=== PATIENT | male | born 1990 ===

== ENCOUNTER 2023-04-15 07:49 | Inpatient (IN) | payer OTHER ==
[2023-04-15] MEDS ORDERED: fentaNYL 50 mcg/mL 1 mL Vial ONE ×2 (07:51→08:52)
[2023-04-15] MEDS ORDERED: Boostrix 0.5 ML (Tdap) VIAL (>/=7 yrs of age) ONE (07:52)
[2023-04-15] MEDS ORDERED: CEFAZOLIN 2 GM VIAL ONE (07:52)
[2023-04-15] MEDS ORDERED: Ondansetron PF 4 MG/2 ML Vial ONE (07:57)
[2023-04-15] MEDS ORDERED: Ketamine In 0.9 % NaCl 50 MG/5 ML SYRINGE ONE (08:39)
[2023-04-15] MEDS ORDERED: Rocuronium Bromide 10 MG/ML (10ML VIAL) ONE ×3 (08:40→12:30)
[2023-04-15] MEDS ORDERED: Midazolam HCl 2 mg/2 ml Vial ONE ×2 (08:51→12:20)
[2023-04-15] MEDS ORDERED: Lidocaine 1% PF 5 ML VIAL ONE (08:53)
[2023-04-15] MEDS ORDERED: Fentanyl CADD 100 ML IV SCH (09:00)
[2023-04-15 09:07] LABS: Bacteria/HPF None Seen HPF (None Seen); Bilirubin Negative (Negative); Blood, Urine 3+ (Negative); CAUTI Indications for Culture Alt mental st,lethar; Clarity Clear (Clear); Glucose, Urine (Dipstick) Normal (Negative); Ketone, Urine Negative (Negative); Leukocyte Negative Leu/uL (Negative); Nitrite Negative (Negative); Protein, Urine (Dipstick) 50 mg/dL (Neg-Trace); RBC/HPF 21-50 HPF (0-3); Specific Gravity, Urine 1.031 (1.002-1.036); Squamous Epithelial 0-3 HPF (0-3); Urobilinogen Normal mg/dL (Less than 2); WBC/HPF 0-3 HPF (0-3)
[2023-04-15 09:09] LABS: Urine Culture Reflex No No
[2023-04-15 09:21] LABS: #Basophils 0.1 thou/uL (0.0-0.2); #Eosinphils 0.1 thou/uL (0.0-0.7); #Monocytes 0.9 thou/uL (0.11-0.59); #Neutrophils 20.3 thou/uL (1.40-6.50); %Basophils 0.3 % (0.0-1.0); %Eosinophils 0.4 % (0.0-10.0); %Lymphocytes 12.8 % (21.0-51.0); %Monocytes 3.6 % (0.0-10.0); %Neutrophils 82.1 % (42.0-75.0); Hematocrit 45.6 % (42.0-52.0); Hemoglobin 15.9 g/dL (14.0-18.0); Mean Corpuscular HGB CONC 34.9 g/dL (32.0-36.0); Mean Corpuscular Hemoglobin 31.1 pg (27.0-31.0); Mean Corpuscular Volume 89.1 fl (78.0-98.0); Mean Platelet Volume 10.4 fL (7.4-10.4); Platelet Count 308 10x3/uL (130-400); RBC Distribution Width 12.8 % (11.5-14.5); Red Blood Cell (RBC) Count 5.12 mill/uL (4.70-6.10); White Blood Cell (WBC) Count 24.8 10x3/uL (4.8-10.8)
[2023-04-15 09:33] LABS: ALT (SGPT) 113 U/L (8-55); AST (SGOT) 159 U/L (5-34); Albumin 3.9 g/dL (3.5-5.0); Alkaline Phosphatase 90 U/L (40-110); Anion Gap 19 mmol/L (10-20); BUN (Urea Nitrogen) 14 mg/dL (8.9-20.6); Bilirubin, Total 0.6 mg/dL (0.2-1.2); Calc. Creatinine Clearance 0 mL/min (70-130); Calcium 8.9 mg/dL (7.8-10.44); Carbon Dioxide 18 mmol/L (22-29); Chloride 104 mmol/L (98-107); Estimated GFR 103; Globulin 2.8 g/dL (2.4-3.5); Glucose 167 mg/dL (70-105); Potassium 3.5 mmol/L (3.5-5.1); Protein, Total 6.7 g/dL (6.0-8.3); Sodium 137 mmol/L (136-145)
[2023-04-15 09:36] LABS: Analyzer IN Cardio ER; Base Excess (BEa) -4.5 mEq/L (-2.0 to +3.0); CO2 Tension 45.5 mmHg (35.0-45.0); Calcium, Ionized (arterial) 1.13 mmol/L (1.12-1.30); Carboxyhemoglobin (COHb) 0.7 gm% (0.0-3.0); Hematocrit-ABG 43 % (42.0-52.0); Hemoglobin (Hb) 14.7 g/dL (14.0-18.0); O2 Tension (PaO2), arterial 79.3 mmHg (80.0-100.0); Potassium - ABG Lab 3.61 mmol/L (3.70-5.30); pH, Arterial 7.302 (7.35-7.45)
[2023-04-15 09:40] LABS: Puncture Site Left Radial
[2023-04-15] MEDS ORDERED: Propofol 1,000 MG/100 ML VIAL IV ONE (09:49)
[2023-04-15] MEDS ORDERED: CEFAZOLIN 2 GM in Sodium Chloride 0.9% 100 ML IVPB SCH ×2 (10:00→15:30)
[2023-04-15] MEDS ORDERED: fentaNYL PF 100 MCG/2 ML SYRINGE ONE (12:20)
[2023-04-15] MEDS ORDERED: PROPOFOL 20 ML ONE (12:20)
[2023-04-15 12:36] LABS: Lactic Acid 2.6 mmol/L (0.5-2.2)
[2023-04-15] MEDS ORDERED: Electrolyte Replacement Protocol 1 EACH FS ONE (13:08)
[2023-04-15] MEDS ORDERED: Iopamidol-370 76% 500 ML MDV (1 ML CHARGE) ONE (13:11)
[2023-04-15] MEDS ORDERED: Ventilator Sedation Protocol 1 EACH FS SCH (13:15)
[2023-04-15] MEDS ORDERED: Electrolyte Replacement Protocol FS PRN (13:30)
[2023-04-15] MEDS ORDERED: Morphine 2 MG/ML VIAL SLOW IVP PRN (13:30)
[2023-04-15] MEDS ORDERED: Fentanyl BOLUS 250 ML IVPB PRN (13:30)
[2023-04-15] MEDS ORDERED: Lorazepam 2 MG/ML VIAL SLOW IVP PRN (13:30)
[2023-04-15] MEDS ORDERED: Propofol BOLUS 1,000 MG/100 ML VIAL IV PRN (13:30)
[2023-04-15] MEDS ORDERED: CEFAZOLIN 1 GM VIAL ONE (13:50)
[2023-04-15] MEDS: Propofol 1,000 MG/100 ML VIAL IV PRN ×3 (15:38→23:20)
[2023-04-15] MEDS: Potassium Chloride 20 MEQ in Premix 1 BAG IVPB SCH ×2 (15:38→18:10)
[2023-04-15] MEDS: Fentanyl CADD 100 ML IV SCH (20:54)
[2023-04-15] MEDS: Sodium Chloride 0.9% 1,000 ML IV SCH (23:07)
[2023-04-16] MEDS: Sodium Chloride 0.9% 1,000 ML IV SCH ×2 (00:58→11:23)
[2023-04-16] MEDS ORDERED: Sodium Chloride 0.9% 500 ML IV SCH (01:00)
[2023-04-16 04:08] LABS: #Monocytes 1.1 thou/uL (0.11-0.59); #Neutrophils 6.3 thou/uL (1.40-6.50); %Basophils 0.1 % (0.0-1.0); %Eosinophils 0.1 % (0.0-10.0); %Monocytes 12.7 % (0.0-10.0); Mean Corpuscular HGB CONC 33.9 g/dL (32.0-36.0); Mean Corpuscular Hemoglobin 31.1 pg (27.0-31.0); Mean Corpuscular Volume 91.7 fl (78.0-98.0); RBC Distribution Width 13.2 % (11.5-14.5); Red Blood Cell (RBC) Count 3.38 mill/uL (4.70-6.10)
[2023-04-16 04:28] LABS: Lactic Acid 1.1 mmol/L (0.5-2.2)
[2023-04-16 04:40] LABS: Anion Gap 11 mmol/L (10-20); BUN (Urea Nitrogen) 15 mg/dL (8.9-20.6); Calc. Creatinine Clearance 144 mL/min (70-130); Calcium 7.5 mg/dL (7.8-10.44); Carbon Dioxide 23 mmol/L (22-29); Chloride 107 mmol/L (98-107); Estimated GFR 96; Glucose 129 mg/dL (70-105); Potassium 4.6 mmol/L (3.5-5.1); Sodium 136 mmol/L (136-145)
[2023-04-16 04:43] LABS: Hemoglobin 10.5 g/dL (14.0-18.0); Platelet Count 166 10x3/uL (130-400)
[2023-04-16] MEDS: Propofol 1,000 MG/100 ML VIAL IV PRN (05:31)
[2023-04-16] MEDS: Fentanyl CADD 100 ML IV SCH (06:28)
[2023-04-16] MEDS: Pantoprazole 40 MG VIAL IVP SCH (08:41)
[2023-04-16] MEDS ORDERED: traMADol HCl 50 MG TAB PO PRN (09:36)
[2023-04-16] MEDS: Morphine 2 MG/ML VIAL SLOW IVP PRN ×2 (11:18→15:20)
[2023-04-16] MEDS: Acetaminophen 500 MG TAB PO PRN (13:54)
[2023-04-16] MEDS ORDERED: Methocarbamol 1 GM in Sodium Chloride 0.9% 100 ML IVPB PRN (14:00)
[2023-04-16] MEDS ORDERED: Melatonin 3 MG TAB PO PRN (18:48)
[2023-04-16] MEDS ORDERED: fentaNYL 50 mcg/mL 1 mL Vial SLOW IVP SCH (19:45)
[2023-04-16] MEDS ORDERED: diphenhydrAMINE 50 MG/ML VIAL IVP PRN ×2 (20:52→21:39)
[2023-04-16] MEDS ORDERED: Naloxone HCl 0.4 mg/ml Vial IV PRN ×2 (20:52→21:39)
[2023-04-16] MEDS ORDERED: Ondansetron PF 4 MG/2 ML Vial IVP PRN ×2 (20:52→21:39)
[2023-04-16] MEDS ORDERED: diphenhydrAMINE 25 MG CAP PO PRN ×2 (20:52→21:39)
[2023-04-16] MEDS ORDERED: Promethazine HCl 25 MG/ML VIAL IM PRN ×2 (20:52→21:39)
[2023-04-16] MEDS ORDERED: HYDROmorphone/PF 10 MG in Sodium Chloride 0.9% 99 ML IV PRN (20:52)
[2023-04-16] MEDS ORDERED: diphenhydrAMINE 50 MG/ML VIAL IM PRN ×2 (20:52→21:39)
[2023-04-16] MEDS ORDERED: Communication Order-Pharmacy FS SCH ×2 (21:00→21:45)
[2023-04-16] MEDS: Fentanyl CADD 100 ML IV PRN (21:54)
[2023-04-17 05:24] VITALS: BMI 33.7
[2023-04-17 05:29] LABS: #Monocytes 0.8 thou/uL (0.11-0.59); #Neutrophils 6.3 thou/uL (1.40-6.50); %Basophils 0.1 % (0.0-1.0); %Eosinophils 0.5 % (0.0-10.0); %Lymphocytes 18.3 % (21.0-51.0); %Monocytes 9.2 % (0.0-10.0); %Neutrophils 71.6 % (42.0-75.0); Mean Corpuscular HGB CONC 34.6 g/dL (32.0-36.0); Mean Corpuscular Hemoglobin 31.6 pg (27.0-31.0); Mean Corpuscular Volume 91.5 fl (78.0-98.0); Mean Platelet Volume 10.2 fL (7.4-10.4); Platelet Count 125 10x3/uL (130-400); RBC Distribution Width 12.9 % (11.5-14.5); Red Blood Cell (RBC) Count 2.34 mill/uL (4.70-6.10); White Blood Cell (WBC) Count 8.8 10x3/uL (4.8-10.8)
[2023-04-17 05:34] LABS: Hematocrit 21.4 % (42.0-52.0); Hemoglobin 7.4 g/dL (14.0-18.0)
[2023-04-17 05:55] LABS: Anion Gap 10 mmol/L (10-20); BUN (Urea Nitrogen) 7 mg/dL (8.9-20.6); Calc. Creatinine Clearance 204 mL/min (70-130); Calcium 7.9 mg/dL (7.8-10.44); Carbon Dioxide 26 mmol/L (22-29); Chloride 103 mmol/L (98-107); Estimated GFR 121; Glucose 104 mg/dL (70-105); Potassium 3.6 mmol/L (3.5-5.1); Sodium 135 mmol/L (136-145)
[2023-04-17] MEDS ORDERED: CEFAZOLIN 2 GM in Sodium Chloride 0.9% 100 ML IVPB SCH (07:30)
[2023-04-17] MEDS: Sodium Chloride 0.9% 1,000 ML IV SCH ×3 (07:45→21:18)
[2023-04-17] MEDS: Acetaminophen 500 MG TAB PO PRN (08:02)
[2023-04-17] MEDS: Pantoprazole 40 MG VIAL IVP SCH (08:02)
[2023-04-17] MEDS: Fentanyl CADD 100 ML IV PRN (14:08)
[2023-04-17 16:28] LABS: Hematocrit 21.6 % (42.0-52.0); Hemoglobin 7.5 g/dL (14.0-18.0); Mean Corpuscular HGB CONC 34.7 g/dL (32.0-36.0); Mean Corpuscular Hemoglobin 31.4 pg (27.0-31.0); Mean Corpuscular Volume 90.4 fl (78.0-98.0); Platelet Count 141 10x3/uL (130-400); RBC Distribution Width 12.8 % (11.5-14.5); Red Blood Cell (RBC) Count 2.39 mill/uL (4.70-6.10); White Blood Cell (WBC) Count 7.9 10x3/uL (4.8-10.8)
[2023-04-18] MEDS: Fentanyl CADD 100 ML IV PRN (08:03)
[2023-04-18] MEDS: Pantoprazole 40 MG VIAL IVP SCH (08:05)
[2023-04-18 08:09] LABS: #Eosinphils 0.1 thou/uL (0.0-0.7); #Monocytes 0.5 thou/uL (0.11-0.59); %Basophils 0.3 % (0.0-1.0); %Eosinophils 1.7 % (0.0-10.0); %Lymphocytes 19.1 % (21.0-51.0); %Monocytes 7.3 % (0.0-10.0); %Neutrophils 71.2 % (42.0-75.0); Hematocrit 19.9 % (42.0-52.0); Hemoglobin 6.9 g/dL (14.0-18.0); Mean Corpuscular HGB CONC 34.7 g/dL (32.0-36.0); Mean Corpuscular Hemoglobin 31.4 pg (27.0-31.0); Mean Corpuscular Volume 90.5 fl (78.0-98.0); Mean Platelet Volume 9.8 fL (7.4-10.4); Platelet Count 156 10x3/uL (130-400); RBC Distribution Width 12.7 % (11.5-14.5)
[2023-04-18 08:37] LABS: Anion Gap 10 mmol/L (10-20); BUN (Urea Nitrogen) 5 mg/dL (8.9-20.6); Calc. Creatinine Clearance 221 mL/min (70-130); Calcium 7.9 mg/dL (7.8-10.44); Carbon Dioxide 27 mmol/L (22-29); Chloride 105 mmol/L (98-107); Estimated GFR 125; Glucose 94 mg/dL (70-105); Potassium 3.5 mmol/L (3.5-5.1); Sodium 138 mmol/L (136-145)
[2023-04-18] MEDS ORDERED: Potassium Chloride 20 MEQ TAB PO SCH (09:00)
[2023-04-18] MEDS ORDERED: Rocuronium Bromide 10 MG/ML (10ML VIAL) ONE ×2 (12:16→13:00)
[2023-04-18] MEDS ORDERED: PROPOFOL 20 ML ONE ×2 (12:16→14:38)
[2023-04-18] MEDS ORDERED: fentaNYL PF 100 MCG/2 ML SYRINGE ONE (12:16)
[2023-04-18] MEDS ORDERED: HYDROmorphone 2 MG/ML VIAL ONE (12:16)
[2023-04-18] MEDS ORDERED: Lidocaine 2% PF 5 ML VIAL ONE ×2 (12:16→12:17)
[2023-04-18] MEDS ORDERED: Dexamethasone 20 MG/5 ML VIAL ONE ×2 (12:17→13:00)
[2023-04-18] MEDS ORDERED: CEFAZOLIN 2 GM VIAL ONE (12:34)
[2023-04-18] MEDS ORDERED: Sodium Chloride 0.9% 100 ML ONE (12:34)
[2023-04-18] MEDS ORDERED: PROPOFOL 200 MG/20 ML VIAL ONE (13:00)
[2023-04-18] MEDS ORDERED: Ketorolac Tromethamine 30 MG/ML VIAL ONE ×2 (13:00→13:51)
[2023-04-18] MEDS ORDERED: Ondansetron PF 4 MG/2 ML Vial ONE (13:00)
[2023-04-18] MEDS ORDERED: SUGAMMADEX SODIUM 200 MG/2 ML VIAL ONE (13:51)
[2023-04-18] MEDS: Sodium Chloride 0.9% 1,000 ML IV SCH (15:12)
[2023-04-18] MEDS: Nicotine 14 MG PATCH TOP SCH (20:12)
[2023-04-18] MEDS: CEFAZOLIN 2 GM in Sodium Chloride 0.9% 100 ML IVPB SCH (22:07)
[2023-04-19] MEDS: Fentanyl CADD 100 ML IV PRN (04:41)
[2023-04-19] MEDS: Sodium Chloride 0.9% 1,000 ML IV SCH (04:47)
[2023-04-19] MEDS: CEFAZOLIN 2 GM in Sodium Chloride 0.9% 100 ML IVPB SCH (05:25)
[2023-04-19 05:54] LABS: #Monocytes 0.8 thou/uL (0.11-0.59); #Neutrophils 9.5 thou/uL (1.40-6.50); %Basophils 0.1 % (0.0-1.0); %Lymphocytes 8.8 % (21.0-51.0); %Monocytes 7.3 % (0.0-10.0); Hematocrit 22.4 % (42.0-52.0); Hemoglobin 7.7 g/dL (14.0-18.0); Mean Corpuscular HGB CONC 34.4 g/dL (32.0-36.0); Mean Corpuscular Hemoglobin 31.4 pg (27.0-31.0); Mean Corpuscular Volume 91.4 fl (78.0-98.0); Mean Platelet Volume 9.8 fL (7.4-10.4); Platelet Count 206 10x3/uL (130-400); Red Blood Cell (RBC) Count 2.45 mill/uL (4.70-6.10); White Blood Cell (WBC) Count 11.4 10x3/uL (4.8-10.8)
[2023-04-19 06:26] LABS: Anion Gap 11 mmol/L (10-20); BUN (Urea Nitrogen) 7 mg/dL (8.9-20.6); Calc. Creatinine Clearance 236 mL/min (70-130); Calcium 8.2 mg/dL (7.8-10.44); Carbon Dioxide 25 mmol/L (22-29); Chloride 106 mmol/L (98-107); Estimated GFR 125; Glucose 112 mg/dL (70-105); Potassium 3.7 mmol/L (3.5-5.1); Sodium 138 mmol/L (136-145)
[2023-04-19] MEDS: Acetaminophen 500 MG TAB PO PRN (08:43)
[2023-04-19] MEDS: Pantoprazole 40 MG VIAL IVP SCH (08:44)
[2023-04-19] MEDS ORDERED: traMADol HCl 50 MG TAB PO PRN (10:36)
[2023-04-19] MEDS ORDERED: Ibuprofen 600 MG TAB PO SCH (10:45)
[2023-04-19] MEDS ORDERED: Acetaminophen 500 MG TAB PO SCH (10:45)
[2023-04-19] MEDS ORDERED: HYDROcodone/Acetaminophen 10/325 mg Tablet PO PRN ×2 (12:03→12:04)
[2023-04-19] MEDS ORDERED: fentaNYL 50 mcg/mL 1 mL Vial SLOW IVP PRN (12:04)
[2023-04-19] MEDS: Acetaminophen 325 MG TAB PO SCH ×3 (12:29→23:03)
[2023-04-19] MEDS: Ibuprofen 200 MG TAB PO SCH ×3 (12:29→23:01)
[2023-04-19] MEDS: traMADol HCl 50 MG TAB PO SCH ×3 (12:30→23:02)
[2023-04-19] MEDS: Gabapentin 300 MG CAP PO SCH ×3 (15:19→21:29)
[2023-04-19] MEDS: Ferrous Sulfate 325 MG TAB PO SCH (18:00)
[2023-04-19] MEDS: Senokot S 8.6-50 MG TAB PO SCH (21:29)
[2023-04-19] MEDS: Nicotine 14 MG PATCH TOP SCH (21:31)
[2023-04-19] MEDS: Bisacodyl 10 MG SUPP PR SCH (21:31)
[2023-04-19] MEDS: Polyethylene Glycol 3350 17 GM Packet PO SCH (21:32)
[2023-04-20 04:26] LABS: #Eosinphils 0.2 thou/uL (0.0-0.7); #Monocytes 0.6 thou/uL (0.11-0.59); #Neutrophils 4.2 thou/uL (1.40-6.50); %Basophils 0.4 % (0.0-1.0); %Eosinophils 2.6 % (0.0-10.0); %Lymphocytes 29.7 % (21.0-51.0); %Monocytes 8.2 % (0.0-10.0); %Neutrophils 57.2 % (42.0-75.0); Hematocrit 21.9 % (42.0-52.0); Hemoglobin 7.4 g/dL (14.0-18.0); Mean Corpuscular HGB CONC 33.8 g/dL (32.0-36.0); Mean Corpuscular Volume 91.6 fl (78.0-98.0); Mean Platelet Volume 9.6 fL (7.4-10.4); Platelet Count 277 10x3/uL (130-400); RBC Distribution Width 13.3 % (11.5-14.5); Red Blood Cell (RBC) Count 2.39 mill/uL (4.70-6.10); White Blood Cell (WBC) Count 7.4 10x3/uL (4.8-10.8)
[2023-04-20 05:04] LABS: Phosphorus 3.1 mg/dL (2.3-4.7)
[2023-04-20 05:08] LABS: Anion Gap 11 mmol/L (10-20); BUN (Urea Nitrogen) 10 mg/dL (8.9-20.6); Calc. Creatinine Clearance 211 mL/min (70-130); Calcium 8.3 mg/dL (7.8-10.44); Carbon Dioxide 28 mmol/L (22-29); Chloride 107 mmol/L (98-107); Estimated GFR 121; Glucose 93 mg/dL (70-105); Potassium 3.7 mmol/L (3.5-5.1); Sodium 142 mmol/L (136-145)
[2023-04-20] MEDS: Acetaminophen 325 MG TAB PO SCH ×4 (05:35→23:14)
[2023-04-20] MEDS: Ibuprofen 200 MG TAB PO SCH ×4 (05:36→23:13)
[2023-04-20] MEDS: traMADol HCl 50 MG TAB PO SCH ×4 (05:37→23:13)
[2023-04-20 05:46] LABS: CK (CPK) 12908 U/L (30-200)
[2023-04-20] MEDS ORDERED: Magnesium 2 GM/50 ML(in water) 2 GM in Premix 1 BAG IVPB SCH ×2 (07:30→08:00)
[2023-04-20] MEDS ORDERED: Bisacodyl 10 MG SUPP PR SCH (09:00)
[2023-04-20] MEDS ORDERED: Polyethylene Glycol 3350 17 GM Packet PO SCH (09:00)
[2023-04-20] MEDS ORDERED: Methocarbamol 500 MG TAB PO PRN (09:31)
[2023-04-20] MEDS: Milk Of Magnesia 30 ML UDCUP PO SCH (09:35)
[2023-04-20] MEDS: Senokot S 8.6-50 MG TAB PO SCH ×2 (09:35→20:31)
[2023-04-20] MEDS: Ferrous Sulfate 325 MG TAB PO SCH ×2 (09:36→17:47)
[2023-04-20] MEDS: Ascorbic Acid 500 mg Chewable Tablet PO SCH (09:36)
[2023-04-20] MEDS: Gabapentin 300 MG CAP PO SCH ×3 (09:36→20:31)
[2023-04-20] MEDS: Pantoprazole 40 MG VIAL IVP SCH (09:37)
[2023-04-20] MEDS: Sodium Chloride 0.9% 1,000 ML IV SCH ×2 (09:38→22:20)
[2023-04-20] MEDS: Polyethylene Glycol 3350 17 GM Packet PO SCH (20:33)
[2023-04-20] MEDS: Nicotine 14 MG PATCH TOP SCH (20:35)
[2023-04-20] MEDS: Bisacodyl 10 MG SUPP PR SCH (20:36)
[2023-04-21 06:19] LABS: #Eosinphils 0.3 thou/uL (0.0-0.7); #Monocytes 0.5 thou/uL (0.11-0.59); #Neutrophils 4.3 thou/uL (1.40-6.50); %Basophils 0.3 % (0.0-1.0); %Eosinophils 3.6 % (0.0-10.0); %Monocytes 7.7 % (0.0-10.0); %Neutrophils 61.6 % (42.0-75.0); Hematocrit 22.2 % (42.0-52.0); Hemoglobin 7.4 g/dL (14.0-18.0); Mean Corpuscular HGB CONC 33.3 g/dL (32.0-36.0); Mean Corpuscular Hemoglobin 30.7 pg (27.0-31.0); Mean Corpuscular Volume 92.1 fl (78.0-98.0); Mean Platelet Volume 9.5 fL (7.4-10.4); Platelet Count 328 10x3/uL (130-400); RBC Distribution Width 13.4 % (11.5-14.5); Red Blood Cell (RBC) Count 2.41 mill/uL (4.70-6.10)
[2023-04-21] MEDS: Acetaminophen 325 MG TAB PO SCH ×2 (06:19→12:11)
[2023-04-21] MEDS: traMADol HCl 50 MG TAB PO SCH ×2 (06:20→12:11)
[2023-04-21] MEDS: Ibuprofen 200 MG TAB PO SCH ×2 (06:20→12:10)
[2023-04-21 06:34] LABS: Anion Gap 11 mmol/L (10-20); BUN (Urea Nitrogen) 9 mg/dL (8.9-20.6); Calc. Creatinine Clearance 226 mL/min (70-130); Calcium 8.5 mg/dL (7.8-10.44); Carbon Dioxide 27 mmol/L (22-29); Chloride 108 mmol/L (98-107); Estimated GFR 123; Glucose 90 mg/dL (70-105); Magnesium 2.1 mg/dL (1.6-2.6); Phosphorus 3.7 mg/dL (2.3-4.7); Potassium 3.8 mmol/L (3.5-5.1); Sodium 142 mmol/L (136-145)
[2023-04-21 06:48] LABS: CK (CPK) 5966 U/L (30-200)
[2023-04-21] MEDS: Senokot S 8.6-50 MG TAB PO SCH (09:02)
[2023-04-21] MEDS: Ferrous Sulfate 325 MG TAB PO SCH (09:02)
[2023-04-21] MEDS: Ascorbic Acid 500 mg Chewable Tablet PO SCH (09:02)
[2023-04-21] MEDS: Milk Of Magnesia 30 ML UDCUP PO SCH (09:03)
[2023-04-21] MEDS: Pantoprazole 40 MG VIAL IVP SCH (09:03)
[2023-04-21] MEDS: Gabapentin 300 MG CAP PO SCH (09:03)
[2023-04-21 12:24] VITALS: BP 138/70; TEMP 97.9
== END 2023-04-21 15:15 | disposition home or self-care (01) | DRG 956 ==
LOC: ERS 07:49 → UNDOADMIN 10:57 → CCU 10:57 → SURG B 04-17 10:45
PROVIDERS: ADMIT Surgery; ATTEND Surgery
PROC: 0QS906Z Reposition Left Femoral Shaft with Intramedullary Internal Fixation Device, Open Approach (ICD-10-PCS; principal; 2023-04-15)
PROC: 0QSH06Z Reposition Left Tibia with Intramedullary Internal Fixation Device, Open Approach (ICD-10-PCS; 2023-04-15)
PROC: 05H633Z Insertion of Infusion Device into Left Subclavian Vein, Percutaneous Approach (ICD-10-PCS; 2023-04-15)
PROC: 4A033R1 Measurement of Arterial Saturation, Peripheral, Percutaneous Approach (ICD-10-PCS; 2023-04-15)
PROC: 5A1935Z Respiratory Ventilation, Less than 24 Consecutive Hours (ICD-10-PCS; 2023-04-15)
PROC: 0BH17EZ Insertion of Endotracheal Airway into Trachea, Via Natural or Artificial Opening (ICD-10-PCS; 2023-04-15)
PROC: 0QB90ZZ Excision of Left Femoral Shaft, Open Approach (ICD-10-PCS; 2023-04-15)
PROC: 0DH67UZ Insertion of Feeding Device into Stomach, Via Natural or Artificial Opening (ICD-10-PCS; 2023-04-15)
PROC: 3E0G76Z Introduction of Nutritional Substance into Upper GI, Via Natural or Artificial Opening (ICD-10-PCS; 2023-04-15)
PROC: 30233N1 Transfusion of Nonautologous Red Blood Cells into Peripheral Vein, Percutaneous Approach (ICD-10-PCS; 2023-04-18)
PROC: 0PSF04Z Reposition Right Humeral Shaft with Internal Fixation Device, Open Approach (ICD-10-PCS; 2023-04-18)
DX: S72.302B Unspecified fracture of shaft of left femur, initial encounter for open fracture type I or II (principal); S06.9XAA Unspecified intracranial injury with loss of consciousness status unknown, initial encounter; J96.00 Acute respiratory failure, unspecified whether with hypoxia or hypercapnia; G93.41 Metabolic encephalopathy; S27.322A Contusion of lung, bilateral, initial encounter; S42.351A Displaced comminuted fracture of shaft of humerus, right arm, initial encounter for closed fracture; S22.42XA Multiple fractures of ribs, left side, initial encounter for closed fracture; S82.202A Unspecified fracture of shaft of left tibia, initial encounter for closed fracture; D62 Acute posthemorrhagic anemia; Z68.1 Body mass index [BMI] 19.9 or less, adult; T79.6XXA Traumatic ischemia of muscle, initial encounter; G89.11 Acute pain due to trauma; S82.892A Other fracture of left lower leg, initial encounter for closed fracture; E66.01 Morbid (severe) obesity due to excess calories; R40.2420 Glasgow coma scale score 9-12, unspecified time; S80.12XA Contusion of left lower leg, initial encounter; S80.11XA Contusion of right lower leg, initial encounter; V69.9XXA Occupant (driver) (passenger) of heavy transport vehicle injured in unspecified traffic accident, initial encounter
CPT/HCPCS: 31500; 36415; 36430; 36556; 51702; 70450; 70486; 70498; 71045; 71260; 72125; 72170; 74177; 80048; 80053; 81001; 82550; 82805; 83605; 83735; 84100; 85025; 86850; 86900; 86901; 90471; 90715; 94002; 94003; 96374; 96375; 99292; C1713; C9113; G0390; J0690; J1100; J1170; J1650; J1885; J2001; J2060; J2250; J2272; J2405; J2704; J2800; J3010; J3480; J3490; J7030; J7050; P9016; Q9967